=== PATIENT | female | born 1965 | race Caucasian/White ===

== ENCOUNTER 2019-01-09 08:24 | Day surgery (SDC) | payer MEDICARE ==
--- NOTE | 2019-01-09 08:12 | HP ---
DATE OF SURGERY: 01/09/2019 HISTORY OF PRESENT ILLNESS: The patient is a 53 year-old with prior history of perforated appendectomy in the past. The final path was not available initially but a month later they sent the report to us. She had some carcinoid involved at the base. She has been seen by an oncologist had carcinoid scan that did not show any evidence of any other areas. She had been seen by the oncologist and it was felt she would benefit from right colectomy given the path. As she has not had a previous colonoscopy I feel she would benefit from colonoscopy first and then set up for elective lap-assisted right colectomy eventually. She has not had a prior colonoscopy to rule out other etiology. PAST MEDICAL HISTORY: Reflux. Bulging disc. Right groin cyst in the past. Attention deficit hyperactivity disorder. She had opioid use in the past. PAST SURGICAL HISTORY: Appendectomy. Sinus surgery. Right hand ganglion cyst. Nasal septum. MEDICATIONS: None on a regular basis. Buspirone, naloxone, Flonase, Flovent HFA, Zicam intranasal, Nexium, Ventolin HFA. ALLERGIES: ERYTHROMYCIN, PENICILLIN IN THE PAST. SHE TOLD ME SHE DID NOT HAVE ANY ALLERGIES IT LOOKS LIKE AT DR. ADLER'S SHE MENTIONED ERYTHROMYCIN, PENICILLIN. FAMILY HISTORY: Breast cancer. Heart disease. Hypertension. Kidney disease. Lung cancer. SOCIAL HISTORY: No alcohol abuse. She is a half-pack per day smoker. REVIEW OF SYSTEMS: Fourteen systems reviewed per admission assessment. No chest pain or palpitations other systems negative or noncontributory as above and per preadmission questionnaire. PHYSICAL EXAMINATION: GENERAL: No acute distress. HEENT: Sclerae nonicteric. NECK: No JVD. CHEST: Equal excursion, nonlabored breathing. CVS: Regular rate and rhythm. ABDOMEN: Soft. EXTREMITIES: No significant edema. NEURO: Alert, oriented, moving extremities symmetrically. No gross motor deficits noted. RECTAL: Deferred timed to endoscopy exam. IMPRESSION: History of carcinoid of the appendix, eventually needs a right colectomy but she has not had a prior colonoscopy. I feel she needs colonoscopy to rule out other lesions in her colon first. Will set her up for an outpatient colonoscopy. General risk of bleeding or infection, risk of bowel injury or perforation possibly requiring open procedure, risk of missed or nondiagnosis or incomplete exam possibly requiring barium enema, other studies or procedures, general risk of anesthesia or sedation, risk of bowel prep but not limited to and consent obtained. Will proceed with outpatient colonoscopy initially and then two or three weeks later lap-assisted right colectomy possible open.
[2019-01-09] MEDS ORDERED: Lactated Ringers 1,000 ML IV SCH (08:30)
[2019-01-09] MEDS ORDERED: Lactated Ringers 1,000 ML IV ONE ×2 (08:38→11:13)
[2019-01-09] MEDS ORDERED: Ketamine HCl 50 MG/ML ONE (10:47)
[2019-01-09] MEDS ORDERED: DIPRIVAN 200 MG/20 ML IV ONE ×5 (10:47→11:30)
[2019-01-09 12:47] VITALS: O2SAT 99
[2019-01-09 12:52] VITALS: BP 138/87; PULSE 85
--- NOTE | 2019-01-10 08:50 | OP ---
SURGERY DATE/TIME: 01/09/2019 1042 PREOPERATIVE DIAGNOSIS: History of appendiceal carcinoid. No prior colonoscopy, need for screening colonoscopy. POSTOPERATIVE DIAGNOSES: 1) Multiple polyps ascending, transverse, descending, sigmoid and rectum. 2) Diverticulosis. 3) Small internal and external hemorrhoids. 4) Fair bowel prep. PROCEDURES: 1) Colonoscopy to cecum. 2) Hot biopsy x2 small ascending colon polyps. 3) Hot snare polypectomy of approximately 4 or 5 moderately large soft, flat polyps both in the mid transverse colon and distal transverse colon. It should be noted that given the size, the mid area was initially marked with ink spot tattooing but larger one more distal transverse colon these two were marked with ink spot tattooing and combination of hot biopsy/hot snare polypectomy of descending, sigmoid and rectal polyps. SURGEON: Dr. Yehuda Jackson. ANESTHESIA: MAC. ESTIMATED BLOOD LOSS: Minimal. INDICATIONS: As noted above. Risks and benefits explained in detail but not limited to and consent obtained. She had carcinoid and was set up to have right colectomy for staging of her carcinoid. As there was a question of staple line from the previous appendectomy at another hospital, it was felt she needed screening colonoscopy prior to the procedure. Consent had been obtained. DESCRIPTION OF PROCEDURE AND FINDINGS: The patient is taken to the operating room. MAC anesthesia introduced. After official time out and no disagreement with planned procedure, digital rectal exam revealed small internal and external hemorrhoids. Video colonoscope inserted and passed up through the slightly tortuous sigmoid, descending, transverse and ascending colon around the cecum. Appendiceal orifice and valve well visualized. Prep overall was fair. Scope slowly and carefully withdrawn. There were a couple small polyps in the ascending colon removed with hot biopsy forceps with brief bursts of cautery. Good hemostasis noted. A little bit larger polyps ranging from 7 to 8 mm to about 1.3 to 1.4 cm in the mid to distal transverse colon removed with hot snare polypectomy. One of these were a little bit on a fold. Each edge was grasped with biopsy forceps this allowed to remove the polyp and this was about 1.3 cm in size. Initially, ink spot tattooing location was noted but there was another four polyps or so removed with hot snare polypectomy. There was variation of a little bit smaller to just a little bit larger than this size. The largest in the distal transverse colon removed with hot snare polypectomy with brief bursts of cautery. Again, these were very flat polyps but given the size the most distal aspect was marked with ink spot tattooing. She did have some diverticulosis, small diverticulosis in the left colon. She had additional small polyps in the descending colon removed with a combination of hot biopsy and hot snare polypectomy and again the sigmoid polyp. It should be noted that she had multiple ones in the sigmoid colon and they were all very smooth mostly flat. Polyps ranged from 3 mm to 7 or 8 mm in size. The largest were biopsied. Given the vast number of polyps she had probably more than 25 or 30 at least, it was felt not safe to try to remove each one of these at this juncture. The largest removed with hot snare polypectomy with brief bursts of cautery, this was again also repeated. She had some smaller polyps in the rectum about 3 mm in size removed with hot snare polypectomy with brief bursts of cautery. She had some internal and external hemorrhoids. There were no large masses but given the multiple, multiple polyps throughout the colon the largest of which was in the transverse colon, await final path. Additionally given the number of polyps will see about ordering tests to see if this is a Wynne Syndrome or familial polyposis-type situation which may change the type of procedure or whether there is any carcinoid in these multiple polyps. Findings discussed with the family in the waiting area. Await path results to ultimately determine if we will keep her right colectomy date of procedure.
== END 2019-01-09 12:55 | disposition home or self-care (01) ==
LOC: SDC 08:24
PROVIDERS: ATTEND Surgery
DX: Z12.11 Encounter for screening for malignant neoplasm of colon (principal); Z86.012 Personal history of benign carcinoid tumor; K63.5 Polyp of colon; K62.1 Rectal polyp; K57.90 Diverticulosis of intestine, part unspecified, without perforation or abscess without bleeding; K64.4 Residual hemorrhoidal skin tags; K64.8 Other hemorrhoids
CPT/HCPCS: 36415; J2704

== ENCOUNTER 2022-01-19 12:49 | Day surgery (SDC) | payer MEDICARE ==
--- NOTE | 2022-01-19 10:01 | HP ---
DATE OF SURGERY: 01/19/2022 HISTORY OF PRESENT ILLNESS: The patient is a 56-year-old with history of Box's, history of carcinoid status post partial colectomy in the past. She is in need of follow up colonoscopy as well as follow up upper endoscopy. PAST MEDICAL HISTORY: Asthma, diabetes type II, history of hiatal hernia, heartburn, Box's, history of carcinoid in the past. Hypertension. PAST SURGICAL HISTORY: Appendectomy. Colonoscopy. Partial colectomy in the past. EGD in the past. Nasal surgery. Tubal in the past. MEDICATIONS: Lisinopril, Ozempic. ALLERGIES: NKDA. FAMILY HISTORY: Negative in regards to this problem. SOCIAL HISTORY: Smoker. No alcohol abuse. REVIEW OF SYSTEMS: Fourteen systems reviewed. No chest pain or palpitations. Other systems negative or noncontributory as above and per preadmission questionnaire. PHYSICAL EXAMINATION: BMI 33.65. Weight 184 pounds, height 5' 2". GENERAL: No acute distress. HEENT: Sclerae nonicteric. NECK: No JVD. CHEST: Equal excursion, nonlabored breathing. CVS: Regular rate and rhythm. ABDOMEN: Soft. No peritoneal signs. EXTREMITIES: No significant edema. NEURO: Alert, oriented, moving extremities symmetrically. RECTAL: Deferred timed to endoscopy exam. PSYCH: Appropriate mood and affect. SKIN: Dry. IMPRESSION: History of carcinoid with partial colectomy, needs follow up colonoscopy. History of Box's, needs follow up upper endoscopy. Risks and benefits explained in detail including but not limited to bleeding or infection, risk of bowel injury or perforation possibly requiring further procedure, risk of missed or nondiagnosis or incomplete exam possibly requiring barium swallow, barium enema, other studies or procedures. General risk of anesthesia or sedation, risk of bowel prep but not limited to, consent obtained. Will proceed with outpatient EGD and colonoscopy under MAC anesthesia.
[2022-01-19] MEDS ORDERED: Lactated Ringers 1,000 ML IV ONE (13:49)
[2022-01-19] MEDS ORDERED: Lactated Ringers 1,000 ML IV SCH (14:00)
[2022-01-19] MEDS ORDERED: Versed 2 MG/2 ML Injection ONE (14:59)
[2022-01-19] MEDS ORDERED: DIPRIVAN 200 MG/20 ML IV ONE ×3 (14:59→15:30)
[2022-01-19 16:24] VITALS: BP 128/96; PULSE 91; O2SAT 98
--- NOTE | 2022-01-20 08:37 | OP ---
SURGERY DATE/TIME: 01/19/2022 1501 PREOPERATIVE DIAGNOSES: 1) History of Box's, need for follow up upper endoscopy. 2) History of carcinoid status post partial colectomy in the past, need for follow up screening colonoscopy. 3) History of polyps in the past. POSTOPERATIVE DIAGNOSES: 1) ASA Class 3. 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 3) Minimal gastritis. 4) Colon polyps. 5) Fair but on the limited side prep. 6) Diverticulosis. 7) Withdrawal time approximately 15 minutes on colonoscopy. PROCEDURES: 1) EGD with cold biopsy of antrum for Helicobacter pylori. 2) Cold biopsy distal esophagus to evaluate for short segment of Box's esophagus. 3) Colonoscopy to terminal ileum. 4) Retrograde ileoscopy. 5) Hot biopsy transverse colon polyps x2. 6) Hot snare polypectomy of 3 to 4 sigmoid polyp, one was removed with a combination of piecemeal just distal to the prior tattoo site with hot biopsy and cold biopsy forceps. 7) Hot snare polypectomy rectal polyp. SURGEON: Dr. Sheldon Jackson. ANESTHESIA: MAC. ESTIMATED BLOOD LOSS: Minimal. INDICATIONS: As noted above. Risks and benefits explained in detail and not limited to and consent obtained. DESCRIPTION OF PROCEDURE AND FINDINGS: The patient is taken to the operating room. MAC anesthesia introduced. After official time out and no disagreement with planned procedure, bite block positioned. Video gastroscope easily passed down the esophagus to the patent pylorus to the junction of the third portion of the duodenum. Third, second and first portions of duodenum were grossly unremarkable. The scope pulled back in the stomach. She had some mild gastric erythema. Cold biopsy taken to evaluate for Helicobacter pylori. Good hemostasis noted. On retroflex there was no hiatal hernia. Scope straightened. Gastroesophageal junction 40 cm. There was a short segment of salmon pink fingerlet of mucosa extending up the esophagus consistent with history of Box's. Multiple cold biopsies were taken of this. Good hemostasis noted. The remainder of the esophagus grossly unremarkable. Attention was then turned to colonoscopy. Digital rectal exam did not reveal any rectal masses. Video colonoscope inserted and passed up through the slightly tortuous sigmoid, descending, transverse colon down the ileum and the patient's prior ileocolonic anastomotic site. The ileum was unremarkable. Scope pulled back. Small polyps x2 removed with hot biopsy polypectomy in the transverse colon. She has some mild diverticulosis. Scope pulled back. In the sigmoid colon, there were three or four small polyps removed with hot snare polypectomy with brief bursts of cautery one of which was about 6 mm or so that was removed with piecemeal and hot snare, cold biopsy, hot biopsy with hot snare polypectomy. It is unclear whether this was appropriately removed, this was distal to a tattooed area but not right at the tattooed area. Otherwise, small polyp in the rectum removed with hot snare polypectomy. Good hemostasis noted. Scope withdrawn. Prep was very limited side with a large amount of liquidy semisolid stool limiting the exam for very small lesion. The patient tolerated the procedure well. There were no immediate complications. Withdrawal time was about 15 minutes.
== END 2022-01-19 16:29 | disposition home or self-care (01) ==
LOC: SDC 12:49
PROVIDERS: ATTEND Surgery
DX: Z09 Encounter for follow-up examination after completed treatment for conditions other than malignant neoplasm (principal); Z86.010 Personal history of colon polyps; Z87.19 Personal history of other diseases of the digestive system; E11.9 Type 2 diabetes mellitus without complications; K29.70 Gastritis, unspecified, without bleeding; K22.70 Barrett's esophagus without dysplasia; K63.5 Polyp of colon; K57.30 Diverticulosis of large intestine without perforation or abscess without bleeding
CPT/HCPCS: 82947; J2250; J2704

== ENCOUNTER 2024-02-02 09:48 | Day surgery (SDC) | payer MEDICARE ==
[2024-02-02] MEDS ORDERED: Sodium Chloride 0.9(Preservative Free) 10 ML IJ ONE (09:49)
[2024-02-02] MEDS ORDERED: LIDOCAINE HCL 1% AMPUL 5 ML IJ ONE (09:49)
[2024-02-02] MEDS ORDERED: Depo-Medrol 40 MG/ML IM ONE (09:49)
[2024-02-02] MEDS ORDERED: Versed 2 MG/2 ML Injection ONE (11:06)
[2024-02-02] MEDS ORDERED: DIPRIVAN 200 MG/20 ML IV ONE (11:43)
--- NOTE | 2024-02-02 13:05 | XRAY ---
Indication: Lumbar MARY. Intraoperative fluoroscopy provided for 15 seconds. 3 digital spot images submitted for interpretation demonstrates needle tip posterior to lumbosacral junction interspace. Small amount of contrast injected for needle tip placement. Correlate with intraoperative findings/report.
--- NOTE | 2024-02-02 14:20 | XRAY ---
15 seconds of fluoroscopy was used in surgery for a lumbar MARY.
== END 2024-02-02 12:24 | disposition home or self-care (01) ==
LOC: SDC-PAIN 09:48
PROVIDERS: ATTEND Psychiatry & Neurology Pain Medicine
DX: M54.16 Radiculopathy, lumbar region (principal); E11.9 Type 2 diabetes mellitus without complications
CPT/HCPCS: 72100; 77003; 82947; J2250; J2704

== ENCOUNTER 2024-06-05 09:24 | Day surgery (SDC) | payer MEDICARE ==
[2024-06-05] MEDS: Lactated Ringers 1,000 ML IV SCH (09:40)
--- NOTE | 2024-06-05 09:48 | HP ---
HISTORY AND PHYSICAL HISTORY OF PRESENT ILLNESS: The patient was in [facility] a couple times for release of partial obstruction in the past. Last colonoscopy 2-3 years ago. She has a history of carcinoid as well as some episodes for diarrhea and cramps as well as knot-like sensation in the left upper quadrant. History of carcinoid. History of on-and-off Ozempic. The patient is in need of upper endoscopy, lower endoscopy given her symptoms. Evaluate for gastritis-related disease, neoplasia, polyps or carcinoid, or inflammatory bowel disease or other etiology. PAST MEDICAL HISTORY: Type 2 diabetes, hypertension. HOME MEDICATIONS: Cipro, metronidazole in the past when she had flare-up and abdominal aches in the past. She is on albuterol for some chronic lung disease, omeprazole, Qelbree, lisinopril. ALLERGIES: PREDNISOLONE. PAST SURGICAL HISTORY: Had resection. She had an appendectomy, later had right colectomy for carcinoid in the past. She has had a tubal ligation. EGD and colonoscopy in the past. SOCIAL HISTORY: History of smoking. Denies alcohol abuse. FAMILY HISTORY: Negative for cardiac problems. REVIEW OF SYSTEMS: Twelve systems reviewed. Negative or noncontributory as above and per preadmission questionnaire and per my assessment. PHYSICAL EXAMINATION: GENERAL: Height 5 feet 2 inches, BMI of 33.65. No acute distress. HEENT: Sclerae nonicteric. NECK: No JVD. CARDIOVASCULAR: Regular rate and rhythm. RESPIRATORY: Equal excursion. Nonlabored breathing. ABDOMEN: Soft. Mild tenderness left abdomen. SKIN: Dry. EXTREMITIES: No cyanosis or edema. NEUROLOGIC: Alert and oriented. Moving extremities symmetrically. PSYCHIATRIC: Appropriate mood and affect. IMPRESSION: History of carcinoid, history of Box's, history of enteritis. She needs follow-up EGD and colonoscopy to evaluate for gastritis, Celiac disease, neoplasia and polyps, inflammatory bowel disease, colitis, or other etiology. Shown the risk sheet and explained the procedure in detail including but not limited to bleeding; infection; risk of bowel injury or perforation; risk of missed or nondiagnosis or incomplete exam possibly requiring barium enema, other studies or procedures; general risk of anesthesia sedation, risk of bowel prep, but not limited to. Patient likely needs followup with her oncologist from a carcinoid standpoint. Otherwise, continue medications for her hypertension, diabetes, and current lung disease. Will proceed with outpatient EGD and colonoscopy under MAC anesthesia.
[2024-06-05 10:09] VITALS: O2SAT 99
[2024-06-05] MEDS ORDERED: propofoL IV ONE ×3 (11:56→12:23)
[2024-06-05] MEDS ORDERED: PHENYLEPHRINE HCL ONE (12:18)
[2024-06-05 13:03] VITALS: RESP 16; TEMP 97
[2024-06-05 13:14] VITALS: BP 103/74; PULSE 81
--- NOTE | 2024-06-06 08:50 | OP ---
SURGERY DATE/TIME: 06/05/2024 [id number] PREOPERATIVE DIAGNOSES: 1) History of Box esophagus. 2) History of carcinoid. 3) History of some diarrhea and cramping. 4) Need for followup upper and lower endoscopy. POSTOPERATIVE DIAGNOSES: 1) ASA class 3. 2) Gastric erythema without evidence of ulcers. 3) Short segment of salmon-pink mucosa distal esophagus, pathology pending, evaluate Box esophagus. 4) Multiple smooth benign-appearing colon polyps. 5) Normal ileum. 6) No evidence of recurrence at ileocolonic anastomotic site. PROCEDURES: 1) Esophagogastroduodenoscopy with cold biopsy of the small bowel. 2) Cold biopsy of the antrum to evaluate for H pylori. 3) Cold biopsy distal esophagus, significant pink mucosa, evaluate for Box esophagus. 4) Colonoscopy to ileum. 5) Retrograde ileoscopy. 6) Random ileal biopsies, evaluate for microscopic ileitis. 7) Random colon biopsies, evaluate for microscopic colitis. 8) Hot biopsy polypectomy of sigmoid polyps x3, hot biopsy polypectomy of another couple of rectosigmoid colon polyps with hot biopsy forceps. 9) Hot biopsy polypectomy, snare polypectomy of 3 rectosigmoid colon polyps as well as 2 or 3 rectal polyps removal with hot snare polypectomy. Additionally, hot biopsy polypectomy of small rectal polyp. 10) Again random cold biopsies of the colon to evaluate for microscopic colitis. SURGEON: Sheldon Jackson MD ANESTHESIA: MAC. ESTIMATED BLOOD LOSS: None. INDICATIONS: Consent was obtained. DESCRIPTION OF PROCEDURE AND FINDINGS: Patient was taken to the endoscopy room. MAC anesthesia was induced. After official time-out, no disagreement with planned procedure. Bite block positioned. Videogastroscope passed down the esophagus through the patent pylorus to the junction of the third and fourth portions of the duodenum. The duodenum was fairly unremarkable. Cold biopsy was taken to evaluate for celiac sprue. Good hemostasis was noted. Scope pulled back in the stomach. There was a little bit of gastric erythema. No evidence of any ulcers. Cold biopsy was taken for pathology to evaluate for H pylori. Good hemostasis was noted. On retroflexion, the GE junction seemed to be snug with the scope, so we straightened the GE junction. There was a short segment of 1.5 cm or so of salmon-pink, 1 tongue extending upwards. Multiple cold biopsies were taken about 0.5 cm apart on this to evaluate for Box esophagus. Remainder of the esophagus was grossly unremarkable. Scope was withdrawn. Attention then turned to colonoscopy. Digital rectal exam did not reveal any rectal masses. Videocolonoscope inserted and passed up through the slightly somewhat tortuous sigmoid, descending, transverse, and ascending colon around to the ileocolonic anastomosis up through the ileum. Retrograde ileoscopy was performed which was grossly unremarkable and then cold biopsy was taken of the ileum to evaluate for microscopic ileitis, given patient's history and symptoms. Scope was then carefully withdrawn over the next 12 minutes. Random cold biopsy of colon to evaluate for microscopic colitis. The scope was carefully pulled back. There was a few small diverticula in the left colon. Otherwise, she had multiple polyps in the sigmoid colon, rectosigmoid colon, and rectum. These appeared to be smooth and hyperplastic in nature, ranging anywhere from 2 mm to 8 to 10 mm in size. Biopsy polypectomy was then accomplished in the sigmoid colon. The hot snare polypectomy of at least 3 rectosigmoid colon polyps ranging from 6 to 8 mm in size was accomplished. These all appeared to be smooth and more hyperplastic appearing than adenomatous. The rectosigmoid was removed with hot biopsy polypectomy. The rectum was removed with hot biopsy polypectomy. Two to 3 other rectal polyps were removed with hot snare polypectomy and vigorous cautery. Good hemostasis noted. The patient had a few diverticula in the left colon, small diverticula, otherwise no signs of any large polyps, masses, or obstructing lesions. She had several polyps, but they appeared to be smooth and more hyperplastic in nature, pathology pending. The scope was withdrawn. There was no family out available to discuss any findings with them in the waiting area. We will see her back in the office next week to go over the results.
== END 2024-06-05 13:15 | disposition home or self-care (01) ==
LOC: SDC 09:24
PROVIDERS: ATTEND Surgery
DX: Z87.19 Personal history of other diseases of the digestive system (principal); Z86.012 Personal history of benign carcinoid tumor; K29.70 Gastritis, unspecified, without bleeding; E11.9 Type 2 diabetes mellitus without complications; K57.30 Diverticulosis of large intestine without perforation or abscess without bleeding; D12.7 Benign neoplasm of rectosigmoid junction; D12.5 Benign neoplasm of sigmoid colon
CPT/HCPCS: 82947; 93005; J2371; J2704